=== PATIENT | female | born 1970 | race Caucasian/White ===

== ENCOUNTER 2021-11-23 16:12 | Outpatient (CLI) | payer OTHER, SELFPAY ==
[2021-11-23 17:59] LABS: Cholesterol* 227 mg/dL (90-199)
[2021-11-23 18:00] LABS: Glucose* 90 mg/dL (60-115); HDL Cholesterol* 69 mg/dL (>=50); LDL Cholesterol Calculated 124 mg/dL (<100); Triglycerides* 168 mg/dL (40-149)
== END 2021-11-23 16:13 | disposition home or self-care (01) ==
PROVIDERS: PCP Internal Medicine; Visit Provider Internal Medicine
DX: I10 Essential (primary) hypertension (principal); Z13.6 Encounter for screening for cardiovascular disorders; Z13.1 Encounter for screening for diabetes mellitus
CPT/HCPCS: 80061; 82947

== ENCOUNTER 2023-01-25 08:39 | Outpatient (CLI) | payer OTHER, SELFPAY ==
--- NOTE | 2023-01-25 08:45 | CRLHL7_ITS ---
For Patients: As a result of the Century Cures Act, medical imaging exams and procedure reports are released immediately into your electronic medical record. You may view this report before your referring provider. If you have questions, please contact your health care provider. BILATERAL SCREENING MAMMOGRAM WITH COMPUTER-AIDED DETECTION AND TOMOSYNTHESIS TECHNIQUE: CC and MLO views were obtained. These mammographic images have been obtained using full-field digital technique. These mammographic images were interpreted with the benefit of computer-aided detection. Breast Tomosynthesis was used in this interpretation. COMPARISON FILM: 04/29/21, 05/21/18. FINDINGS: There are scattered areas of fibroglandular density IMPRESSION: There is no radiographic evidence for malignancy. ASSESSMENT: BI-RADS Category 1: Negative RECOMMENDATION: Routine screening mammogram in 1 year. A lay language report of this examination will be provided to the patient. Gonzalo Camacho M.D. Diagnostic Radiologist [email or web address] TJ/Dictated by: Gonzalo Camacho MD @ 01/25/2023 1:20:00 PM (Electronically Signed)
== END 2023-01-25 08:40 | disposition home or self-care (01) ==
LOC: MAMMO 08:42
PROVIDERS: PCP Internal Medicine; Visit Provider Internal Medicine
DX: Z12.31 Encounter for screening mammogram for malignant neoplasm of breast (principal)
CPT/HCPCS: 77063; 77067

== ENCOUNTER 2023-06-29 14:29 | Outpatient (CLI) | payer OTHER, SELFPAY | END 2023-06-29 14:30 | disposition home or self-care (01) | LOC: NFLDREF 14:42 | PROVIDERS: PCP Internal Medicine; Visit Provider Internal Medicine | DX: Z13.220 Encounter for screening for lipoid disorders (principal) | CPT/HCPCS: 80061 ==

== ENCOUNTER 2023-12-01 12:58 | Outpatient (CLI) | payer BC, SELFPAY ==
--- NOTE | 2023-12-01 13:00 | CRLHL7_ITS ---
For Patients: As a result of the Century Cures Act, medical imaging exams and procedure reports are released immediately into your electronic medical record. You may view this report before your referring provider. If you have questions, please contact your health care provider. CLINICAL HISTORY: BILATERAL Retinal HEMORRHAGE TECHNIQUE: The carotid circulations and the vertebral arteries in the neck were examined with morales-scale ultrasound, color-flow and Doppler spectral analysis. Degrees of stenosis were determined using SRU 2002 Consensus Panel Criteria. FINDINGS: Sonographic images demonstrate mild atherosclerotic plaque formation without suspicious soft tissue mass. There was antegrade blood flow demonstrated within the vertebral arteries and the subclavian arteries demonstrated a normal triphasic waveform. The spectral Doppler tracings of the common carotid, internal and external carotid arteries demonstrate no abnormal turbulence or spectral broadening. There was no significant elevation of peak systolic blood flow which would indicate a hemodynamically-significant stenosis by SRU criteria. The ICA/CCA peak systolic velocity ratio measures 1.2 on the right and 0.8 on the left. IMPRESSION: Less than 50 percent stenosis of the internal carotid arteries bilaterally. Dictated by Gonzalo Camacho MD @ 12/01/2023 2:10:10 PM (Electronically Signed)
== END 2023-12-01 12:59 | disposition home or self-care (01) ==
LOC: US 12:59
PROVIDERS: PCP Internal Medicine; Visit Provider Internal Medicine
DX: H35.63 Retinal hemorrhage, bilateral (principal); I65.23 Occlusion and stenosis of bilateral carotid arteries
CPT/HCPCS: 93880

== ENCOUNTER 2024-04-30 07:50 | Outpatient (CLI) | payer BC, SELFPAY | END 2024-04-30 07:51 | disposition home or self-care (01) | LOC: NFLDREF 05-01 08:15 | PROVIDERS: PCP Internal Medicine; Referring Provider Internal Medicine; Visit Provider Internal Medicine | DX: E78.5 Hyperlipidemia, unspecified (principal) | CPT/HCPCS: 80061 ==